=== PATIENT | male | born 1965 | race Caucasian/White ===

== ENCOUNTER 2019-01-06 06:23 | Day surgery (SDC) | payer OTHER ==
[2019-01-06] MEDS ORDERED: Sodium Chloride 0.9% 1,000 ML IV SCH (06:45)
[2019-01-06] MEDS ORDERED: Midazolam 1 MG/ML 2 ML SDV ONE (07:28)
[2019-01-06] MEDS ORDERED: fentaNYL 100 MCG/2 ML SDV ONE (07:28)
[2019-01-06] MEDS ORDERED: Propofol 200 MG/20 ML SDV ONE (07:28)
--- NOTE | 2019-01-06 10:37 | OR ---
DATE OF PROCEDURE: 08/09/2018 PROCEDURE: Colonoscopy. FINDINGS: Normal colonoscopy. PREOPERATIVE DIAGNOSIS: Screening colonoscopy. POSTOPERATIVE DIAGNOSIS: Screening colonoscopy. SURGEON: Saul Balbuena MD RISKS: Risks, benefits, alternatives, and limitations, including but not limited to infection, bleeding, and perforation were explained to the patient and wished to proceed. PROCEDURE IN DETAIL: The patient was placed in the left lateral decubitus position. Digital rectal exam was performed without abnormality. Scope was introduced and advanced atraumatically to the ileocecal valve. Photo was taken. Scope was brought back to the ascending, transverse, descending colon, and retroflexed. No evidence of old or new blood. No masses. No diverticulosis or diverticulitis. No abnormalities on retroflexion. The patient tolerated the procedure well. Saul Balbuena MD /[id number]
== END 2019-01-06 09:15 | disposition home or self-care (01) ==
LOC: JP.SDS 06:23
PROVIDERS: ATTEND Surgery
DX: Z12.11 Encounter for screening for malignant neoplasm of colon (principal); E66.9 Obesity, unspecified; Z68.33 Body mass index [BMI] 33.0-33.9, adult
CPT/HCPCS: 45378; J2250; J2704; J3010; J7030

== ENCOUNTER 2021-10-30 05:15 | Day surgery (SDC) | payer OTHER ==
[2021-10-30] MEDS ORDERED: Dextrose 5%-Lactated Ringers 1,000 ML IV SCH (06:30)
[2021-10-30] MEDS ORDERED: Acetaminophen 500 MG Tab PO ONE (06:30)
[2021-10-30] MEDS ORDERED: Bupivacaine 0.5%/EPINEPHrine 1:200,000 50 ML MDV ONE (06:46)
[2021-10-30] MEDS ORDERED: Lidocaine 1% with EPINEPHrine 1:100,000 50 ML MDV ONE (06:46)
[2021-10-30] MEDS ORDERED: Bupivacaine 0.5% 50 ML MDV ONE (06:46)
[2021-10-30] MEDS ORDERED: fentaNYL 100 MCG/2 ML SDV ONE ×2 (06:57→07:28)
[2021-10-30] MEDS ORDERED: Propofol 200 MG/20 ML SDV ONE ×3 (06:58→08:01)
[2021-10-30] MEDS ORDERED: Midazolam 1 MG/ML 2 ML SDV ONE (06:58)
[2021-10-30] MEDS ORDERED: ceFAZolin 2 GM in Sodium Chloride 0.9% 100 ML IV ONE (07:00)
[2021-10-30] MEDS ORDERED: Ketorolac 30 MG/ML SDV ONE (07:18)
[2021-10-30] MEDS ORDERED: oxyCODONE 5 MG Tab PO PRN (09:17)
== END 2021-10-30 11:02 | disposition home or self-care (01) ==
LOC: JP.SDS 05:15
PROVIDERS: ATTEND Surgery
DX: K40.30 Unilateral inguinal hernia, with obstruction, without gangrene, not specified as recurrent (principal); D17.1 Benign lipomatous neoplasm of skin and subcutaneous tissue of trunk; K21.9 Gastro-esophageal reflux disease without esophagitis
CPT/HCPCS: A9270-GY; C1713; C1781; J0690; J1885; J2250; J2704; J3010; J3490; J7121